=== PATIENT | male | born 1980 | race Caucasian/White ===

== ENCOUNTER 2023-02-17 03:27 | Emergency (ER) | payer BC ==
[~2023-02-17] VITALS: Ht 180.3 cm; Wt 100.0 kg
[2023-02-17 03:54] VITALS: BP 132/90; PULSE 61; RESP 17; TEMP 97.8; O2SAT 96
[2023-02-17] MEDS ORDERED: IBUP-2029 MT (05:26)
== END 2023-02-17 05:30 | disposition home or self-care (01) ==
LOC: ER 03:27
DX: S90.121A Contusion of right lesser toe(s) without damage to nail, initial encounter (principal); I10 Essential (primary) hypertension; X58.XXXA Exposure to other specified factors, initial encounter; Y93.89 Activity, other specified; Y92.89 Other specified places as the place of occurrence of the external cause; Y99.8 Other external cause status
CPT/HCPCS: 73660; 99283